=== PATIENT | female | born 1995 ===

== ENCOUNTER 2017-02-22 19:54 | Emergency (ER) | payer SELFPAY ==
[2017-02-22 19:59] VITALS: BMI 21.7
[2017-02-22 20:03] VITALS: TEMP 99.6
--- NOTE | 2017-02-22 20:42 | ED PDOC ---
Arrival/HPI - General Historian: Patient - History of Present Illness Time/Duration: < week Symptom Onset: Gradual Symptom Course: Unchanged Quality: Other (sharp) Severity Level: 10 Activities at Onset: Rest Context: Work <Luis Melo - Last Filed: 02/22/17 23:31> <EmilywildDileep - Last Filed: 02/26/17 10:04> - General Chief Complaint: Back Pain Time Seen by Provider: 02/22/17 20:10 - History of Present Illness Narrative History of Present Illness (Text): 02/22/17 20:37 This is a 21 yr. old female with no pertinent past medical history who comes to [facility] complaining of bilateral lower lumbar pain for two days. She describes the pain as sharp and nature and it radiates to the right lower quadrant and left lower quadrant. She reports taking a Tylenol and an unknown antibiotic from a previous prescription but denies any improvement in her symptoms. She also reports a change in her urine to a light pink around the same time the lower back pain began. She does report some nausea. She denies any fevers, chills, discharge from the vagina, new vaginal odors, weakness, chest pain, shortness of breath or any other complaints. (Luis Melo) Past Medical History - Provider Review Nursing Documentation Reviewed: Yes - Infectious Disease Hx of Infectious Diseases: None - Cardiac Hx Cardiac Disorders: No - Pulmonary Hx Respiratory Disorders: No - Neurological Hx Neurological Disorder: No - HEENT Hx HEENT Disorder: No - Renal Hx Renal Disorder: No - Endocrine/Metabolic Hx Endocrine Disorders: No - Hematological/Oncological Hx Blood Disorders: No - Integumentary Hx Dermatological Disorder: No - Musculoskeletal/Rheumatological Hx Musculoskeletal Disorders: No - Gastrointestinal Hx Gastrointestinal Disorders: No - Genitourinary/Gynecological Hx Genitourinary Disorders: No - Psychiatric Hx Psychophysiologic Disorder: No Hx Substance Use: No - Anesthesia Hx Anesthesia: No Hx Anesthesia Reactions: No <Luis Melo - Last Filed: 02/22/17 23:31> Family/Social History - Physician Review Nursing Documentation Reviewed: Yes Family/Social History: No Known Family HX Smoking Status: Never Smoked Hx Alcohol Use: No Hx Substance Use: No <Luis Melo - Last Filed: 02/22/17 23:31> Allergies/Home Meds <Luis Melo - Last Filed: 02/22/17 23:31> <Dileep Lafleur - Last Filed: 02/26/17 10:04> Allergies/Adverse Reactions: Allergies No Known Allergies Allergy (Verified 06/26/16 14:30) Review of Systems - Physician Review All systems were reviewed & negative as marked: Yes - Review of Systems Constitutional: Normal. absent: Weight Change, Fevers, Night Sweats Eyes: Normal. absent: Vision Changes, Eye Pain ENT: Normal. absent: Rhinorrhea, Sinus Congestion Respiratory: Normal. absent: SOB, Cough, Wheezing Cardiovascular: Normal. absent: Chest Pain, Palpitations Gastrointestinal: Abdominal Pain (radiation of pain to rlq and llq.), Nausea. absent: Stool Changes, Constipation, Diarrhea, Vomiting, Hematochezia Genitourinary Female: Other (urine color change to light pink). absent: Dysuria , Frequency, Vaginal Bleeding, Vaginal Discharge Musculoskeletal: Back Pain (bilaeral lower lumbar pain) Skin: Rash Neurological: Normal. absent: Dizziness, Speech Changes Endocrine: absent: Polyuria, Polydipsia Hemo/Lymphatic: Normal. absent: Easy Bleeding, Easy Bruising Psychiatric: Normal <Luis Melo - Last Filed: 02/22/17 23:31> Physical Exam Vital Signs Reviewed: Yes Temperature: Afebrile Blood Pressure: Normal Pulse: Regular Respiratory Rate: Normal Appearance: Positive for: Well-Appearing, Non-Toxic, Comfortable Pain Distress: Moderate Mental Status: Positive for: Alert and Oriented X 3 - Systems Exam Head: Present: Atraumatic, Normocephalic Pupils: Present: PERRL. No: Sluggish Extroacular Muscles: Present: EOMI. No: Gaze Palsy Conjunctiva: Present: Normal. No: Injected, Icteric Mouth: Present: Moist Mucous Membranes, Normal Tounge. No: Drooling Neck: Present: Normal Range of Motion. No: JVD, Lymphadenopathy Respiratory/Chest: Present: Clear to Auscultation, Good Air Exchange. No: Respiratory Distress, Accessory Muscle Use, Wheezes Cardiovascular: Present: Regular Rate and Rhythm, Normal S1, S2. No: Murmurs, Tachycardic, Bradycardic Abdomen: Present: Tenderness (llq and rlq some tenderness appreciated upon palpation), Normal Bowel Sounds. No: Distention, Rebound, Guarding Back: Present: Normal Inspection, CVA Tenderness (cva tenderness appreciated bilateral lower lumbar region). No: Paraspinal Tenderness Upper Extremity: Present: Normal Inspection. No: Cyanosis, Edema Lower Extremity: Present: Normal Inspection. No: Edema Neurological: Present: CN II-XII Intact, Speech Normal Skin: Present: Dry, Normal Color. No: Warm, Rashes Psychiatric: Present: Alert, Oriented x 3, Normal Insight, Normal Concentration <Luis Melo - Last Filed: 02/22/17 23:31> Medical Decision Making <Luis Melo - Last Filed: 02/22/17 23:31> <Dileep Lafleur - Last Filed: 02/26/17 10:04> ED Course and Treatment: 02/22/17 20:49 Patient is a 21 yr. old female who comes into [facility] complaining of bilateral lower lumbar pain that radiates to the rlq and llq. I ordered: cbc w/diff, cmp, u/a, poc, and abdominal ct scan. The patient was given Toradol for pain. The patient will be re-evaluated once the lab results return. 02/22/17 23:31 Patient U/A showed: proteinuria, urine blood (moderate), Leuk esterase (large), urine RBC(5-10), urine WBC and moderate urine bacteria. Patient was given 1 gram Rocephin IVPB. Patient will be discharged on Keflex 500mg BID for 5 days. Discussed with patient to establish PMD and f/u within one week. (Luis Meol) Impression: Pt was seen and evaluated with medical laboratory scientist. Pt, with no significant past medical history, complaining of sharp lower back pain radiating to her abdomen with associated nausea. Aware and agree with HPI, clinical findings, plan, and management. Plan: -- CT Abdomen and Pelvis w/o contrast -- Labs -- UA, urine cultures -- Toradol -- Rocephin -- Reassess and disposition (Dileep Lafleur) - Lab Interpretations Microbiology Results: Microbiology Results 02/22/17 20:49 Urine,Clean Catch Urine Culture - Final No Growth (<1,000 CFU/ML) Lab Results: 02/22/17 20:49 02/22/17 20:49 Lab Results 02/22/17 20:49: Sodium 140, Potassium 4.1, Chloride 103, Carbon Dioxide 25, Anion Gap 16, BUN 10, Creatinine 0.7, Est GFR ( Amer) > 60, Est GFR (Non- Af Amer) > 60, Random Glucose 89, Calcium 9.3, Total Bilirubin 0.2, AST 24, ALT 28, Alkaline Phosphatase 58, Total Protein 7.7, Albumin 4.3, Globulin 3.4, Albumin/Globulin Ratio 1.3 02/22/17 20:49: WBC 12.0 H, RBC 4.11, Hgb 12.1, Hct 36.9, MCV 89.8, MCH 29.4, MCHC 32.8, RDW 13.3, Plt Count 252, MPV 11.1 H, Gran % 66.8, Lymph % (Auto) 24.7 , [place] % (Auto) 7.2 H, Eos % (Auto) 1.0 L, Baso % (Auto) 0.3, Gran # 7.99 H, Lymph # 3.0, [place] # 0.9 H, Eos # 0.1, Baso # 0.03 02/22/17 20:49: Urine Color Yellow, Urine Appearance Turbid, Urine pH 7.0, Ur Specific [place] 1.015, Urine Protein 30 H, Urine Glucose (UA) Negative, Urine Ketones Negative, Urine Blood Moderate H, Urine Nitrate Negative, Urine Bilirubin Negative, Urine Urobilinogen 0.2, Ur Leukocyte Esterase Large H, Urine RBC 5 - 10, Urine WBC Tntc, Ur Epithelial Cells 6 - 8, Urine Bacteria Mod - RAD Interpretation Radiology Orders: 02/22/17 20:33 ABD & PELVIS W/O PO OR IV CONT [CT] Stat - Medication Orders Current Medication Orders: Discontinued Medications Ceftriaxone Sodium (Rocephin 1 Gram Ivpb) 1 gm in 100 mls @ 200 mls/hr IVPB STAT STA PRN Reason: Protocol Stop: 02/22/17 23:00 Last Admin: 02/22/17 22:46 Dose: 200 mls/hr Ketorolac Tromethamine (Toradol) 60 mg IM STAT STA Stop: 02/22/17 20:31 Last Admin: 02/22/17 20:58 Dose: 60 mg - PA / QUALITY TECHNICIAN / Resident Statement / has reviewed & agrees with the documentation as recorded. MD/DO has examined the patient and agrees with the treatment plan. <Dileep Lafleur - Last Filed: 02/26/17 10:04> Disposition/Present on Arrival - Present on Arrival Any Indicators Present on Arrival: No History of DVT/PE: No History of Uncontrolled Diabetes: No Urinary Catheter: No History of Decub. Ulcer: No History Surgical Site Infection Following: None - Disposition Have Diagnosis and Disposition been Completed?: Yes Disposition Time: 22:42 Patient Plan: Discharge <Luis Melo - Last Filed: 02/22/17 23:31> - Present on Arrival Any Indicators Present on Arrival: No - Disposition Have Diagnosis and Disposition been Completed?: Yes <Dileep Lafleur - Last Filed: 02/26/17 10:04> - Disposition Diagnosis: UTI (urinary tract infection) Disposition: HOME/ ROUTINE Condition: GOOD Discharge Instructions (ExitCare): Dysuria (ED) Additional Instructions: Patient instructed to take Keflex 500 mg BID for 5 days. Patient instructed to F/U with PMD within one week. Patient is to return to [facility] if any new symptoms arise or any current symptoms worsen. Prescriptions: Cephalexin [cephalexin] 500 mg PO BID #10 cap Referrals: PCP,NO [Primary Care Provider] - Follow up with primary Forms: [employer] (Romansh)
[2017-02-22 21:00] LABS: BASO # 0.03 K/mm3 (0.0-2.0); BASO % 0.3 % (0.0-3.0); EOS # 0.1 (0.0-0.7); GRAN # 7.99 (1.4-6.5); GRAN % 66.8 % (50.0-68.0); HEMATOCRIT 36.9 % (36.0-48.0); LYMPH % 24.7 % (22.0-35.0); MEAN CELL VOLUME 89.8 fl (80.0-105.0); MEAN CORPUSCULAR HEMOGLOBIN 29.4 pg (25.0-35.0); MEAN CORPUSCULAR HGB CONC 32.8 g/dl (31.0-37.0); MEAN PLATELET VOLUME 11.1 fl (7.0-11.0); MONO # 0.9 (0.1-0.6); MONO % 7.2 % (1.0-6.0); RED CELL DISTRIBUTION WIDTH 13.3 % (11.5-14.5); URINE BILIRUBIN NEGATIVE (NEGATIVE); URINE GLUCOSE (UA) NEGATIVE (NEGATIVE); URINE KETONE NEGATIVE (NEGATIVE); URINE LEUKOCYTE ESTERASE LARGE Leu/uL (NEGATIVE); URINE PROTEIN 30 mg/dL (<30 mg/dL); URINE UROBILINOGEN 0.2 E.U./dL (<1 E.U./dL)
[2017-02-22 21:09] LABS: URINE APPEARANCE TURBID (CLEAR); URINE COLOR YELLOW (YELLOW)
[2017-02-22 21:10] LABS: ALB/GLOB RATIO 1.3 (1.1-1.8); ALKALINE PHOSPHATASE 58 U/L (38-133); ALT/SGPT 28 U/L (7-56); AST/SGOT 24 U/L (15-39); BILIRUBIN,TOTAL 0.2 mg/dL (0.2-1.3); BLOOD UREA NITROGEN 10 mg/dL (7-21); CALCIUM 9.3 mg/dL (8.4-10.5); CARBON DIOXIDE 25 mmol/L (21-33); CHLORIDE 103 mmol/L (98-107); GFR AFRICAN-AMERICAN > 60; GLUCOSE,RANDOM 89 mg/dL (70-110); POTASSIUM 4.1 mmol/L (3.6-5.0); SODIUM 140 mmol/L (132-148); TOTAL PROTEIN 7.7 g/dL (5.8-8.3)
[2017-02-22 21:11] LABS: URINE BLOOD MODERATE (NEGATIVE)
[2017-02-22 21:12] LABS: URINE WBC TNTC /hpf (0-6)
[2017-02-22 21:13] LABS: URINE BACTERIA MOD (NEG)
--- NOTE | 2017-02-22 22:18 | CT ---
EXAM: CT Abdomen and Pelvis Without Intravenous Contrast CLINICAL HISTORY: 21 years old, female; Pain; Abdominal pain; Additional info: Bilateral lumbar pain/rlq and llq pain TECHNIQUE: Axial computed tomography images of the abdomen and pelvis without intravenous contrast. All CT scans at this facility use one or more dose reduction techniques, viz.: automated exposure control; ma/kV adjustment per patient size (including targeted exams where dose is matched to indication; i.e. head); or iterative reconstruction technique. Coronal and sagittal reformatted images were created and reviewed. COMPARISON: US - OB TRANSVAGINAL 06/26/2016 3:16:20 PM FINDINGS: Lower thorax: There is minimal bibasilar atelectasis. ABDOMEN: Liver: There are no focal liver lesions present. Gallbladder and bile ducts: The gallbladder is contracted but otherwise normal. No calcified stones. No ductal dilation. Pancreas: The pancreas is normal. No ductal dilation. Spleen: The spleen is normal. Adrenals: The adrenal glands are normal. Kidneys and ureters: The kidneys are normal. No obstructing stones. No hydronephrosis. Stomach and bowel: The stomach is normal. Colonic constipation is present. There is no evidence of intestinal obstruction. No mucosal thickening. Appendix: A normal appendix is identified. PELVIS: Bladder: Bladder is predominantly decompressed and grossly unremarkable. No stones. Reproductive: The uterus is normal. ABDOMEN and PELVIS: Intraperitoneal space: There is trace pelvic ascites, nonspecific. There is no free intraperitoneal air. Bones/joints: No acute fracture. No dislocation. Soft tissues: Unremarkable. Vasculature: The aorta is normal. No abdominal aortic aneurysm. Lymph nodes: There is no evidence of lymphadenopathy. IMPRESSION: No acute findings.
[2017-02-22] MEDS ORDERED: cefTRIAXone 1 gm 1 GM/100 ML BAG IVPB STA (22:31)
[2017-02-22 23:49] VITALS: BP 105/70; PULSE 78; RESP 18; O2SAT 98
== END 2017-02-22 23:40 | disposition home or self-care (01) ==
LOC: ED 19:54
DX: N39.0 Urinary tract infection, site not specified (principal)
CPT/HCPCS: 74176; 80053; 81001; 85025; 87086; 96372; 99284; J0696; J1885

== ENCOUNTER 2017-03-17 20:22 | Emergency (ER) | payer SELFPAY ==
[2017-03-17 20:22] VITALS: BMI 21.7
[2017-03-17 20:29] VITALS: TEMP 98.9
[2017-03-17] MEDS ORDERED: TDAP Vaccine 0.5 mL Syr IM ONE (21:21)
[2017-03-17] MEDS ORDERED: Naproxen 550 mg Tab PO STA (21:23)
[2017-03-17] MEDS ORDERED: Lidocaine 1% Inj (20ml) IJ STA (22:19)
--- NOTE | 2017-03-17 23:05 | ED PDOC ---
Arrival/HPI - General Chief Complaint: Abnormal Skin Integrity Time Seen by Provider: 03/17/17 21:21 Historian: Patient - History of Present Illness Narrative History of Present Illness (Text): 03/18/17 00:12 21 yo F sustained a laceration to the left palm when she was using a knife to separate 2 veggie burgers. Denies fevers, chills, numbness, decrease in ROM. Has no other injuries. Past Medical History - Provider Review Nursing Documentation Reviewed: Yes - Infectious Disease Hx of Infectious Diseases: None - Tetanus Immunization Tetanus Immunization: Unknown - Cardiac Hx Cardiac Disorders: No - Pulmonary Hx Respiratory Disorders: No - Neurological Hx Neurological Disorder: No - HEENT Hx HEENT Disorder: No - Renal Hx Renal Disorder: No - Endocrine/Metabolic Hx Endocrine Disorders: No - Hematological/Oncological Hx Blood Disorders: No - Integumentary Hx Dermatological Disorder: No - Musculoskeletal/Rheumatological Hx Musculoskeletal Disorders: No - Gastrointestinal Hx Gastrointestinal Disorders: No - Genitourinary/Gynecological Hx Genitourinary Disorders: No - Psychiatric Hx Psychophysiologic Disorder: No Hx Substance Use: No - Anesthesia Hx Anesthesia: No Hx Anesthesia Reactions: No Family/Social History - Physician Review Nursing Documentation Reviewed: Yes Family/Social History: No Known Family HX Smoking Status: Never Smoked Hx Alcohol Use: Yes Frequency of alcohol use: Socially Hx Substance Use: No Allergies/Home Meds Allergies/Adverse Reactions: Allergies No Known Allergies Allergy (Verified 03/17/17 20:23) Review of Systems - Review of Systems Constitutional: Normal. absent: Fatigue, Weight Change, Fevers Musculoskeletal: Normal. absent: Arthralgias, Back Pain, Neck Pain Skin: Normal, Laceration. absent: Rash, Pruritis, Skin Lesions Physical Exam - Physical Exam Narrative Physical Exam (Text): 03/18/17 00:14 GENERAL APPEARANCE: Patient is awake, alert, oriented x 3, in no acute distress. SKIN: Warm, (-) rash, (-) lesions. UPPER EXTREMITY: (+) Tenderness with laceration to the hypothenar aspect of the L paln ~2 cm, (-) swelling, (-) ecchymosis; (-) crepitus, (-) deformity. Tendon function intact. (-) distal neurovascular deficit. 2 point discrimination. Remainder of hand, digits and wrist: (-) injury. Vital Signs Temp Pulse Resp BP Pulse Ox 03/17/17 20:23 98.9 F 76 16 114/78 100 Medical Decision Making ED Course and Treatment: 03/18/17 00:14 21 yo F sustained a laceration to the L palm. Plan: - XR L hand - Tdap - Naprosyn - Laceration repair XR L hand: no fracture, no dislocation, no FB, as read by PA The wound is L palm. The wound was copiously irrigated with normal saline. The wound was prepped and draped in the normal sterile fashion. The wound was explored for foreign bodies and none were found. The wound was anesthetised using lidocaine. The edges were reapproximated using 3 5-0 prolene sutures by PA. Bleeding was well controlled and the patient tolerated the procedure well. Clean dressing applied. Advised to follow up with the clinic in 1-2 days without fail for wound check, advised to have sutures removed after 1 week. Advised to take medication as prescribed. Return to the emergency room at any time for any new or worsening symptoms. Patient states she fully agrees with and understands discharge instructions. States that she agrees with the plan and disposition. Verbalized and repeated discharge instructions and plan. I have given the patient opportunity to ask any additional questions. - RAD Interpretation Radiology Orders: 03/17/17 21:22 HAND LEFT 3 VIEWS ROUTINE [RAD] Stat - Medication Orders Current Medication Orders: Discontinued Medications Lidocaine HCl (Lidocaine 1% (20ml)) 50 ml IJ STAT STA Stop: 03/17/17 22:20 Last Admin: 03/17/17 22:32 Dose: 10 ml Comments: Given by ResidentMazin. Naproxen (Anaprox Ds) 550 mg PO ONCE STA Stop: 03/17/17 21:24 Last Admin: 03/17/17 21:38 Dose: 550 mg Tetanus/Reduced Diphtheria/Acell Pertussis (Boostrix Vaccine Inj) 0.5 ml IM .ONCE ONE Stop: 03/17/17 21:22 Last Admin: 03/17/17 21:37 Dose: 0.5 ml - PA / MANUFACTURER / Resident Statement / has reviewed & agrees with the documentation as recorded. Disposition/Present on Arrival - Present on Arrival Any Indicators Present on Arrival: No History of DVT/PE: No History of Uncontrolled Diabetes: No Urinary Catheter: No History of Decub. Ulcer: No History Surgical Site Infection Following: None - Disposition Have Diagnosis and Disposition been Completed?: Yes Diagnosis: Laceration of hand, left Disposition: HOME/ ROUTINE Disposition Time: 23:03 Patient Plan: Discharge Patient Problems: Current Active Problems Problem Status Onset Laceration of hand, left Acute Condition: STABLE Discharge Instructions (ExitCare): Laceration (ED), Acute Wound Care (ED) Print Language: SLOVAK Additional Instructions: Thank you for letting us take care of you today. You were treated for L hand laceration. The emergency medical care you received today was directed at your acute symptoms. If you were prescribed any medication, please fill it and take as directed. It may take several days for your symptoms to resolve. Return to the Emergency Department if your symptoms worsen, do not improve, or if you have any other problems. Please contact your doctor in 2 days for re-evaluation and follow up. Bring any paperwork you were given at discharge with you along with any medications you are taking to your follow up visit. Our treatment cannot replace ongoing medical care by a primary care provider (PCP) outside of the emergency department. Thank you for allowing the [facility] team to be part of your care today. If you had an X-Ray : A Radiologist will review the ED reading if any change in treatment is needed we will contact you. Prescriptions: Naproxen 500 mg PO BID #30 tab Referrals: PCP,NO [Primary Care Provider] - [place] [facility] [place] - Follow up with primary Forms: [email or web address] (Malagasy), WORK NOTE, SCHOOL NOTE
[2017-03-18 00:15] VITALS: BP 120/68; PULSE 84; RESP 18; O2SAT 98
--- NOTE | 2017-03-18 08:45 | RAD ---
PROCEDURE: Left Hand Radiographs. HISTORY: trauma COMPARISON: None. FINDINGS: BONES: Normal. No fracture. JOINTS: Normal. No osteoarthritic changes. SOFT TISSUES: Normal. OTHER FINDINGS: None. IMPRESSION: Normal left hand radiographs.
== END 2017-03-18 00:20 | disposition home or self-care (01) ==
LOC: ED 20:22
DX: S61.412A Laceration without foreign body of left hand, initial encounter (principal); W26.0XXA Contact with knife, initial encounter; Y93.G9 Activity, other involving cooking and grilling; Y92.89 Other specified places as the place of occurrence of the external cause; Z23 Encounter for immunization

== ENCOUNTER 2017-05-04 19:40 | Emergency (ER) | payer SELFPAY ==
[2017-05-04 20:01] VITALS: BMI 21.0
[2017-05-04 20:05] VITALS: BP 104/71; PULSE 77; RESP 17; TEMP 98.6; O2SAT 99
[2017-05-04] MEDS ORDERED: Sodium Chloride 0.9% 1,000 ML IV STA (20:25)
--- NOTE | 2017-05-04 20:50 | ED PDOC ---
Arrival/HPI - General Historian: Patient - History of Present Illness Time/Duration: 24 hours Symptom Onset: Sudden Symptom Course: Intermittent Quality: Stabbing Severity Level: Moderate Context: Home - General Chief Complaint: Abdominal Pain Time Seen by Provider: 05/04/17 19:47 - History of Present Illness Narrative History of Present Illness (Text): 05/04/17 20:46 22F w/no sig PMH evaluated for epigastric abdominal pain x 1 day. Pt reports sudden onset of epigastric pain, intermittent since AM of day of evaluation. Pain is sharp, moderate, non radiating. No alleviating factors identified. Admits to heavy ETOH consumption last night, was not able to eat anything this AM. Admits to nausea, emesis x 1 (nbnb), dry mouth, poor appetite. Denies F & C , other complaints. PMH: Denies PSH: Denies All: NKDA SH: Admits to occasional heavy ETOH consumption, denies tobacco or illicit drug use PMD: Denies (Pamela Melara) Past Medical History - Provider Review Nursing Documentation Reviewed: Yes - Infectious Disease Hx of Infectious Diseases: None - Tetanus Immunization Tetanus Immunization: Unknown - Cardiac Hx Cardiac Disorders: No - Pulmonary Hx Respiratory Disorders: No - Neurological Hx Neurological Disorder: No - HEENT Hx HEENT Disorder: No - Renal Hx Renal Disorder: No - Endocrine/Metabolic Hx Endocrine Disorders: No - Hematological/Oncological Hx Blood Disorders: No - Integumentary Hx Dermatological Disorder: No - Musculoskeletal/Rheumatological Hx Musculoskeletal Disorders: No - Gastrointestinal Hx Gastrointestinal Disorders: No - Genitourinary/Gynecological Hx Genitourinary Disorders: No - Psychiatric Hx Psychophysiologic Disorder: No Hx Substance Use: No - Anesthesia Hx Anesthesia: No Hx Anesthesia Reactions: No Family/Social History - Physician Review Nursing Documentation Reviewed: Yes Family/Social History: No Known Family HX Smoking Status: Never Smoked Hx Alcohol Use: Yes Frequency of alcohol use: Socially Hx Substance Use: No Allergies/Home Meds Allergies/Adverse Reactions: Allergies No Known Allergies Allergy (Verified 05/04/17 20:00) Home Medications: Home Meds Medication Instructions Recorded Confirmed No Known Home Med 05/04/17 05/04/17 Review of Systems - Physician Review All systems were reviewed & negative as marked: Yes - Review of Systems Constitutional: Normal. absent: Fatigue Eyes: Normal. absent: Vision Changes ENT: Normal. absent: Rhinorrhea Respiratory: Normal. absent: SOB Cardiovascular: Normal. absent: Chest Pain Gastrointestinal: Abdominal Pain, Nausea, Vomiting, Appetite Changes, Food Intolerance. absent: Normal, Constipation, Diarrhea, Hematochezia, Hematemesis Musculoskeletal: Normal. absent: Back Pain Skin: Normal. absent: Rash Neurological: Normal. absent: Headache Physical Exam Vital Signs Reviewed: Yes Temperature: Afebrile Blood Pressure: Normal Pulse: Regular Respiratory Rate: Normal Appearance: Positive for: Non-Toxic, Comfortable Pain Distress: None Mental Status: Positive for: Alert and Oriented X 3 - Systems Exam Head: Present: Atraumatic, Normocephalic Extroacular Muscles: Present: EOMI Conjunctiva: Present: Normal Mouth: Present: Moist Mucous Membranes Nose (External): Present: Atraumatic Neck: Present: Normal Range of Motion, JVD Respiratory/Chest: Present: Clear to Auscultation, Good Air Exchange. No: Respiratory Distress, Accessory Muscle Use Cardiovascular: Present: Regular Rate and Rhythm, Normal S1, S2. No: Murmurs Abdomen: Present: Tenderness (mild, epigastric), Normal Bowel Sounds, Scars ( umbilical piercing). No: Distention, Peritoneal Signs, Rebound, Guarding, Hernias Back: Present: Normal Inspection Upper Extremity: Present: Normal Inspection. No: Cyanosis, Edema Lower Extremity: Present: Normal Inspection. No: Edema Neurological: Present: GCS=15, CN II-XII Intact, Speech Normal Skin: Present: Warm, Dry, Normal Color. No: Rashes Psychiatric: Present: Alert, Oriented x 3, Normal Insight, Normal Concentration Vital Signs Temp Pulse Resp BP Pulse Ox 05/04/17 20:04 98.6 F 77 17 104/71 99 Medical Decision Making ED Course and Treatment: 05/04/17 20:52 Pt seen/evaluated, will give anti-emetic, pepcid, IVF and do labs to r/o pancreatitis 05/04/17 21:11 Pt re-assessed, states that pain is much improved. (Pamela Melara) In agreement with resident note, which includes further HPI details. Patient was seen and evaluated with resident, came up with plan and treatment together. (Dileep Lafleur) - Lab Interpretations Lab Results: 05/04/17 20:29 05/04/17 20:29 Lab Results 05/04/17 20:29: Sodium 141, Potassium 4.0, Chloride 101, Carbon Dioxide 28, Anion Gap 16, BUN 6 L, Creatinine 0.7, Est GFR ( Amer) > 60, Est GFR (Non -Af Amer) > 60, Random Glucose 74, Calcium 9.7, Total Bilirubin 0.5, AST 31, ALT 22, Alkaline Phosphatase 44, Total Protein 8.1, Albumin 4.6, Globulin 3.5, Albumin/Globulin Ratio 1.3, Lipase 72 05/04/17 20:29: WBC 8.4 D, RBC 4.22, Hgb 12.3, Hct 37.7, MCV 89.3, MCH 29.1, MCHC 32.6, RDW 13.3, Plt Count 339, MPV 10.7, Gran % 47.7 L, Lymph % (Auto) 43.1 H, [place] % (Auto) 8.1 H, Eos % (Auto) 0.4 L, Baso % (Auto) 0.7, Gran # 3.99 , Lymph # 3.6 H, [place] # 0.7 H, Eos # 0.0, Baso # 0.06 - Medication Orders Current Medication Orders: Discontinued Medications Famotidine (Pepcid) 20 mg IVP STAT STA Stop: 05/04/17 20:27 Last Admin: 05/04/17 20:57 Dose: 20 mg IVP Administration Document 05/04/17 20:57 SS (Rec: 05/04/17 20:57 [id number]) Charges for Administration # of IVP Administrations 1 Sodium Chloride (Sodium Chloride 0.9%) 1,000 mls @ 999 mls/hr IV .Q1H1M STA Stop: 05/04/17 21:25 Last Admin: 05/04/17 20:57 Dose: 999 mls/hr eMAR Start Stop Document 05/04/17 20:57 SS (Rec: 05/04/17 20:58 SS [id number]) Intravenous Solution Start Date 05/04/17 Start Time 20:40 End Date 05/04/17 End time 21:40 Total Infusion Time 60 Ondansetron HCl (Zofran Inj) 4 mg IVP STAT STA Stop: 05/04/17 20:26 Last Admin: 05/04/17 20:57 Dose: 4 mg IVP Administration Document 05/04/17 20:57 SS (Rec: 05/04/17 20:57 SS [id number]) Charges for Administration # of IVP Administrations 1 Disposition/Present on Arrival - Present on Arrival Any Indicators Present on Arrival: No History of DVT/PE: No History of Uncontrolled Diabetes: No Urinary Catheter: No History of Decub. Ulcer: No History Surgical Site Infection Following: None - Disposition Have Diagnosis and Disposition been Completed?: Yes Disposition Time: 21:32 Patient Plan: Discharge - Disposition Diagnosis: Gastritis due to alcohol without hemorrhage Disposition: HOME/ ROUTINE Condition: STABLE Discharge Instructions (ExitCare): Gastritis (ED) Additional Instructions: Ok to take pepcid over the counter as needed for stomach upset after alcohol consumption. Please follow up with a primary care provider to establish care. Referrals: [facility] at [facility] [place] [Outside] - Follow up with primary [facility] [facility] [Outside] - Follow up with primary Forms: [facility] (Armenian), WORK NOTE
[2017-05-04 21:06] LABS: BASO # 0.06 K/mm3 (0.0-2.0); BASO % 0.7 % (0.0-3.0); EOS % 0.4 % (1.5-5.0); GRAN # 3.99 (1.4-6.5); GRAN % 47.7 % (50.0-68.0); HEMATOCRIT 37.7 % (36.0-48.0); LYMPH # 3.6 (1.2-3.4); LYMPH % 43.1 % (22.0-35.0); MEAN CELL VOLUME 89.3 fl (80.0-105.0); MEAN CORPUSCULAR HEMOGLOBIN 29.1 pg (25.0-35.0); MEAN CORPUSCULAR HGB CONC 32.6 g/dl (31.0-37.0); MEAN PLATELET VOLUME 10.7 fl (7.0-11.0); MONO # 0.7 (0.1-0.6); MONO % 8.1 % (1.0-6.0); RED CELL DISTRIBUTION WIDTH 13.3 % (11.5-14.5); WHITE BLOOD COUNT 8.4 10^3/ul (4.5-11.0)
[2017-05-04 21:11] LABS: ALB/GLOB RATIO 1.3 (1.1-1.8); ALKALINE PHOSPHATASE 44 U/L (38-126); ALT/SGPT 22 U/L (7-56); AST/SGOT 31 U/L (14-36); BILIRUBIN,TOTAL 0.5 mg/dL (0.2-1.3); BLOOD UREA NITROGEN 6 mg/dL (7-21); CALCIUM 9.7 mg/dL (8.4-10.5); CARBON DIOXIDE 28 mmol/L (21-33); CHLORIDE 101 mmol/L (98-107); GFR AFRICAN-AMERICAN > 60; GLUCOSE,RANDOM 74 mg/dL (70-110); LIPASE 72 U/L (23-300); SODIUM 141 mmol/L (132-148); TOTAL PROTEIN 8.1 g/dL (5.8-8.3)
== END 2017-05-04 21:40 | disposition home or self-care (01) ==
LOC: ED 19:40
DX: K29.20 Alcoholic gastritis without bleeding (principal)
CPT/HCPCS: 80053; 83690; 85025; 96361; 96374; 96375; 99283; J2405; J7040

== ENCOUNTER 2017-10-26 22:00 | Emergency (ER) | payer SELFPAY ==
[2017-10-26 22:49] VITALS: RESP 17; BMI 21.9
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
[2017-10-27 02:16] VITALS: BP 118/68; PULSE 70; TEMP 98.2; O2SAT 100
--- NOTE | 2017-10-27 10:12 | RAD ---
PROCEDURE: Left Knee Radiographs. HISTORY: Pain. COMPARISON: None. FINDINGS: BONES: Normal. No fracture. JOINTS: Normal. No osteoarthritis. JOINT EFFUSION: None. OTHER FINDINGS: None. IMPRESSION: Normal radiographs of the left knee.
== END 2017-10-27 02:30 | disposition home or self-care (01) ==
LOC: ED 22:00
DX: S80.212A Abrasion, left knee, initial encounter (principal); S80.211A Abrasion, right knee, initial encounter; S90.512A Abrasion, left ankle, initial encounter; S30.810A Abrasion of lower back and pelvis, initial encounter; V28.9XXA Unspecified motorcycle rider injured in noncollision transport accident in traffic accident, initial encounter; Y92.89 Other specified places as the place of occurrence of the external cause; M25.562 Pain in left knee
CPT/HCPCS: 73562; 96372; 99285; J1885

== ENCOUNTER 2017-10-30 00:51 | Emergency (ER) | payer SELFPAY ==
[2017-10-30 00:51] VITALS: BMI 21.0
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
[2017-10-30 02:33] VITALS: RESP 18
--- NOTE | 2017-10-30 03:45 | CT ---
EXAM: CT Maxillofacial Without Intravenous Contrast EXAM DATE/TIME: 10/30/2017 2:01 AM CLINICAL HISTORY: The patient age is 22 years old and is female; Pain; Jaw pain; Additional info: Left jaw pain Facility exam id and description: Ct faces maxillofacial w/o contrast TECHNIQUE: Axial computed tomography images of the face without intravenous contrast. All CT scans at this facility use one or more dose reduction techniques, viz.: automated exposure control; ma/kV adjustment per patient size (including targeted exams where dose is matched to indication; i.e. head); or iterative reconstruction technique. Coronal and sagittal reformatted images were created and reviewed. COMPARISON: No relevant prior studies available. FINDINGS: Bones/joints: No visualized acute facial bone fracture. Soft tissues: No acute facial soft tissue swelling. Orbits: No acute abnormality. Sinuses: There is minimal mucosal thickening within the bilateral maxillary sinuses. The frontal sinuses are hypoplastic. No air fluid levels within the paranasal sinuses. Dental: Dental caries is visualized. IMPRESSION: 1. No visualized acute facial bone fracture. 2. Minimal paranasal sinus disease is noted above.
[2017-10-30 04:57] VITALS: BP 100/52; PULSE 72; TEMP 98.6; O2SAT 100
== END 2017-10-30 04:15 | disposition home or self-care (01) ==
LOC: ED 00:51
DX: R68.84 Jaw pain (principal); Z51.89 Encounter for other specified aftercare
CPT/HCPCS: 70486; 81025; 96372; 99284; J1885

== ENCOUNTER 2018-05-31 18:38 | Emergency (ER) | payer MEDICAID, OTHER ==
[2018-05-31 18:39] VITALS: BMI 21.0
[2018-05-31 19:16] VITALS: TEMP 99.3
[2018-05-31] MEDS ORDERED: Sodium Chloride 0.9% 1,000 ML IV STA (19:46)
[2018-05-31 20:09] LABS: BASO # 0.02 K/mm3 (0.0-2.0); BASO % 0.2 % (0.0-3.0); EOS # 0.1 (0.0-0.7); GRAN # 5.2 (1.4-6.5); GRAN % 55.9 % (50.0-68.0); HEMOGLOBIN 11.5 g/dL (12.0-16.0); LYMPH # 3.6 (1.2-3.4); LYMPH % 38.2 % (22.0-35.0); MEAN CELL VOLUME 88.4 fl (80.0-105.0); MEAN CORPUSCULAR HEMOGLOBIN 28.3 pg (25.0-35.0); MEAN PLATELET VOLUME 10.7 fl (7.0-11.0); MONO # 0.4 (0.1-0.6); MONO % 4.7 % (1.0-6.0); RBC 4.06 10^6/uL (3.5-6.1); RED CELL DISTRIBUTION WIDTH 13.6 % (11.5-14.5); WHITE BLOOD COUNT 9.3 10^3/uL (4.5-11.0)
[2018-05-31 20:10] LABS: URINE APPEARANCE CLEAR (CLEAR); URINE BILIRUBIN NEGATIVE (NEGATIVE); URINE BLOOD NEGATIVE (NEGATIVE); URINE COLOR LIGHT YELLOW (YELLOW); URINE GLUCOSE (UA) NEGATIVE (NEGATIVE); URINE LEUKOCYTE ESTERASE NEGATIVE Leu/uL (NEGATIVE); URINE PROTEIN NEGATIVE mg/dL (<30 mg/dL); URINE UROBILINOGEN 0.2 E.U./dL (<1 E.U./dL)
[2018-05-31 20:23] LABS: ALB/GLOB RATIO 1.2 (1.1-1.8); ALBUMIN 4.4 g/dL (3.0-4.8); ALT/SGPT 24 U/L (7-56); AST/SGOT 30 U/L (14-36); BLOOD UREA NITROGEN 11 mg/dL (7-21); CALCIUM 9.5 mg/dL (8.4-10.5); GFR NON-AFRICAN AMERICAN > 60; LIPASE 89 U/L (23-300)
[2018-05-31 22:07] VITALS: BP 105/79; PULSE 85; RESP 18; O2SAT 100
--- NOTE | 2018-05-31 22:36 | ED PDOC ---
Arrival/HPI - General Chief Complaint: Headache Historian: Patient - History of Present Illness Narrative History of Present Illness (Text): 05/31/18 19:40 23 year old female, P:0, with no significant past medical history, who presents to the emergency department complaining of lower abdominal pain over the past 1-2 weeks. Patient notes mild nausea and states she vomited twice yesterday. Patient states her last known menstrual period was April 29, but notes it was very light. Patient denies any dysuria, hematuria, or any other complaints. Time/Duration: < week (Patient notes abdominal pain for past 1-2 weeks) Symptom Onset: Sudden Symptom Course: Unchanged Activities at Onset: Light Past Medical History - Provider Review Nursing Documentation Reviewed: Yes - Infectious Disease Hx of Infectious Diseases: None - Tetanus Immunization Tetanus Immunization: Up to Date - Cardiac Hx Cardiac Disorders: No - Pulmonary Hx Respiratory Disorders: No - Neurological Hx Neurological Disorder: No - HEENT Hx HEENT Disorder: No - Renal Hx Renal Disorder: No - Endocrine/Metabolic Hx Endocrine Disorders: No - Hematological/Oncological Hx Blood Disorders: No - Integumentary Hx Dermatological Disorder: No - Musculoskeletal/Rheumatological Hx Musculoskeletal Disorders: No - Gastrointestinal Hx Gastrointestinal Disorders: No - Genitourinary/Gynecological Hx Genitourinary Disorders: Yes Hx Urinary Tract Infection: Yes - Psychiatric Hx Psychophysiologic Disorder: No Hx Substance Use: No - Anesthesia Hx Anesthesia: No Hx Anesthesia Reactions: No Family/Social History - Physician Review Nursing Documentation Reviewed: Yes Family/Social History: No Known Family HX Smoking Status: Never Smoked Hx Alcohol Use: Yes Hx Substance Use: No Allergies/Home Meds Allergies/Adverse Reactions: Allergies No Known Allergies Allergy (Verified 05/31/18 19:21) Review of Systems - Physician Review All systems were reviewed & negative as marked: Yes - Review of Systems Gastrointestinal: Abdominal Pain (patient notes lower abd pain for past 1-2 weeks), Nausea (pt notes mild nausea), Vomiting (pt notes she vomited twice yesterday). absent: Normal Genitourinary Female: Normal. absent: Dysuria, Hematuria Physical Exam Vital Signs Reviewed: Yes Vital Signs Temp Pulse Resp BP Pulse Ox 05/31/18 21:30 85 18 105/79 100 05/31/18 19:14 99.3 F 86 17 100/35 L 98 Temperature: Afebrile Blood Pressure: Normal Pulse: Regular Respiratory Rate: Normal Appearance: Positive for: Well-Appearing, Non-Toxic, Comfortable Pain Distress: Mild Mental Status: Positive for: Alert and Oriented X 3 - Systems Exam Head: Present: Atraumatic, Normocephalic Pupils: Present: PERRL Extroacular Muscles: Present: EOMI Conjunctiva: Present: Normal Mouth: Present: Moist Mucous Membranes Neck: Present: Normal Range of Motion Respiratory/Chest: Present: Clear to Auscultation, Good Air Exchange. No: Respiratory Distress, Accessory Muscle Use Cardiovascular: Present: Regular Rate and Rhythm, Normal S1, S2. No: Murmurs Abdomen: No: Tenderness, Distention, Peritoneal Signs Back: Present: Normal Inspection Upper Extremity: Present: Normal Inspection. No: Cyanosis, Edema Lower Extremity: Present: Normal Inspection. No: Edema Neurological: Present: GCS=15, CN II-XII Intact, Speech Normal Skin: Present: Warm, Dry, Normal Color. No: Rashes Psychiatric: Present: Alert, Oriented x 3, Normal Insight, Normal Concentration Medical Decision Making ED Course and Treatment: 05/31/18 19:40 Impression: 23 year old female, P:0, complaining of lower abdominal pain over the past 1-2 weeks. Plan: -- Labs -- CBC (with differential) -- IV fluids -- Urine culture -- ED NPO (ED Only Order) -- POC Urine -- Urinalysis -- US of OB transvaginal -- Transvaginal US -- Reassess and disposition Prior Visits: Notes and results from previous visits were reviewed. Patient was last seen in the emergency department on 10/30/17 c/o left jaw pain x 4 days. Patient was discharged home in good condition and directed to follow up with Dr. Stubbs. Progress Notes: 05/31/18 I reviewed the bloodwork and Ultrasound, indicating + . Pt given prescription for vitamins and will follow up with OBGYN doctor this week. - Lab Interpretations Lab Results: 05/31/18 19:56 05/31/18 19:56 Lab Results 05/31/18 19:56: Beta HCG, Quant [id number] H 05/31/18 19:56: Sodium 139, Potassium 4.5, Chloride 103, Carbon Dioxide 27, Anion Gap 13, BUN 11, Creatinine 0.7, Est GFR ( Amer) > 60, Est GFR (Non-Af Amer) > 60, Random Glucose 90, Calcium 9.5, Magnesium 2.0, Total Bilirubin 0.2, AST 30, ALT 24, Alkaline Phosphatase 56, Total Protein 8.2, Albumin 4.4, Globulin 3.8, Albumin/Globulin Ratio 1.2, Lipase 89 05/31/18 19:56: Urine Color Light yellow, Urine Appearance Clear, Urine pH 7.0, Ur Specific [place] 1.020, Urine Protein Negative, Urine Glucose (UA) Negative, Urine Ketones Negative, Urine Blood Negative, Urine Nitrate Negative, Urine Bilirubin Negative, Urine Urobilinogen 0.2, Ur Leukocyte Esterase Negative 05/31/18 19:56: WBC 9.3, RBC 4.06, Hgb 11.5 L, Hct 35.9 L, MCV 88.4, MCH 28.3, MCHC 32.0, RDW 13.6, Plt Count 301, MPV 10.7, Gran % 55.9, Lymph % (Auto) 38.2 H , [place] % (Auto) 4.7, Eos % (Auto) 1.0 L, Baso % (Auto) 0.2, Gran # 5.20, Lymph # (Auto) 3.6 H, [place] # (Auto) 0.4, Eos # (Auto) 0.1, Baso # (Auto) 0.02 - RAD Interpretation Narrative RAD Interpretations (Text): Transvaginal US reviewed by radiologist, shows: Exam Date: May 31, 2018 8:20:49 PM History Lower abdominal pain. Comparison None available. Findings Uterus Gestational sac is seen. Yolk sac measures 0.2 cm. pole and heart motion are not identified. Uterus measures 8.9 x 5.5 x 6.1 cm. No mass. Cervix Long and closed measuring 3.2 cm. No cervical abnormality seen. Right Ovary Measures 3.3 x 1.3 x 2.7 cm. No mass. Normal flow. Left Ovary Measures 3.1 x 1.5 x 3.3 cm. No mass. Normal flow. Free Fluid None. Other Findings None. Impression 1. Early IUP with gestational sac and yolk sac datead at less than 4 week. 2. pole and heart motion are not identified. 3. Consider follow up in 1-2 weeks. Radiology Orders: 05/31/18 19:46 OB TRANSVAGINAL [US] Stat Presales Engineer: Radiologist - Medication Orders Current Medication Orders: Discontinued Medications Sodium Chloride (Sodium Chloride 0.9%) 1,000 mls @ 999 mls/hr IV .Q1H1M STA Stop: 05/31/18 20:46 Last Admin: 05/31/18 20:00 Dose: 999 mls/hr eMAR Start Stop Document 05/31/18 20:00 AD (Rec: 05/31/18 20:01 AD [id number]) Intravenous Solution Start Date 05/31/18 Start Time 20:00 - Scribe Statement The provider has reviewed the documentation as recorded by the Scribe Nubia King All medical record entries made by the Scribe were at my direction and personally dictated by me. I have reviewed the chart and agree that the record accurately reflects my personal performance of the history, physical exam, medical decision making, and the department course for this patient. I have also personally directed, reviewed, and agree with the discharge instructions and disposition. Disposition/Present on Arrival - Present on Arrival Any Indicators Present on Arrival: No History of DVT/PE: No History of Uncontrolled Diabetes: No Urinary Catheter: No History of Decub. Ulcer: No History Surgical Site Infection Following: None - Disposition Have Diagnosis and Disposition been Completed?: Yes Diagnosis: Early stage of Disposition: HOME/ ROUTINE Disposition Time: 21:00 Condition: GOOD Discharge Instructions (ExitCare): - The First Month Additional Instructions: KADEEM ROLLINS, thank you for letting us take care of you today. The emergency medical care you received today was directed at your acute symptoms. If you were prescribed any medication, please fill it and take as directed. It may take several days for your symptoms to resolve. Return to the Emergency Department if your symptoms worsen, do not improve, or if you have any other problems. Please contact your doctor or call one of the physicians/clinics you have been referred to that are listed on the Patient Visit Information form that is included in your discharge packet. Bring any paperwork you were given at discharge with you along with any medications you are taking to your follow up visit. Our treatment cannot replace ongoing medical care by a primary care provider outside of the emergency department. Thank you for allowing the [email or web address] team to be part of your care today. Follow up with your [employer] doctor this week for re-evaluation and further management. Prescriptions: 21/Iron Fu/Folic Acid [ Complete Caplet] 1 each PO DAILY #30 tablet Referrals: [facility] Lubin, [Non-Staff] - Follow up with primary Forms: [employer] (Greenlandic)
--- NOTE | 2018-06-01 12:23 | US ---
Date of service: 05/31/2018 PROCEDURE: HISTORY: lower abdominal pain COMPARISON: TECHNIQUE: FINDINGS: The uterus measures 8.9 x 5.5 x 6.4 centimeters. There is an intrauterine gestational sac as well as a yolk sac. No pole is observed. The ovaries are unremarkable. IMPRESSION: Intrauterine gestational sac lead evidence of pole. Findings may represent an early intrauterine . Ectopic is not excluded. Recommend short-term interval follow-up and correlation with beta HCG levels.
== END 2018-05-31 21:30 | disposition home or self-care (01) ==
LOC: ED 18:38
DX: O26.891 Other specified pregnancy related conditions, first trimester (principal); Z3A.01 Less than 8 weeks gestation of pregnancy
CPT/HCPCS: 76817; 80053; 81003; 83690; 83735; 84702; 85025; 87086; 99285; J7030

== ENCOUNTER 2018-07-19 17:11 | Emergency (ER) | payer MEDICAID, OTHER ==
[2018-07-19 17:25] VITALS: BMI 22.6
--- NOTE | 2018-07-19 18:00 | ED PDOC ---
Arrival/HPI - General Chief Complaint: Abdominal Pain Time Seen by Provider: 07/19/18 17:36 Historian: Patient - History of Present Illness Narrative History of Present Illness (Text): 07/19/18 17:56 23-year-old female who is 10 weeks presents today with presenting today with lower abdominal pain that started yesterday. Patient describes the pain as a sharp pain located in the lower abdomen patient denies fevers or chills. No chest pain or shortness of breath. She denies dysuria or urinary frequency but states that she is noticed that the urine is cloudy. Patient denies any back pain. No headaches dizziness or weakness. No URI symptoms. No other complaints Past Medical History - Provider Review Nursing Documentation Reviewed: Yes - Travel History Have you recently traveled outside [place] w/in the past 3 mons?: No - Infectious Disease Hx of Infectious Diseases: None - Tetanus Immunization Tetanus Immunization: Up to Date - Cardiac Hx Cardiac Disorders: No - Pulmonary Hx Respiratory Disorders: No - Neurological Hx Neurological Disorder: No - HEENT Hx HEENT Disorder: No - Renal Hx Renal Disorder: No - Endocrine/Metabolic Hx Endocrine Disorders: No - Hematological/Oncological Hx Blood Disorders: No - Integumentary Hx Dermatological Disorder: No - Musculoskeletal/Rheumatological Hx Musculoskeletal Disorders: No - Gastrointestinal Hx Gastrointestinal Disorders: No - Genitourinary/Gynecological Hx Genitourinary Disorders: Yes Hx Urinary Tract Infection: Yes - Psychiatric Hx Psychophysiologic Disorder: No Hx Substance Use: No - Anesthesia Hx Anesthesia: No Hx Anesthesia Reactions: No Family/Social History - Physician Review Nursing Documentation Reviewed: Yes Family/Social History: Unknown Family HX Smoking Status: Never Smoked Hx Alcohol Use: No Hx Substance Use: No Allergies/Home Meds Allergies/Adverse Reactions: Allergies No Known Allergies Allergy (Verified 05/31/18 19:21) Review of Systems - Review of Systems Constitutional: absent: Fatigue, Fevers ENT: absent: Sore Throat, Sinus Congestion Respiratory: absent: SOB, Cough Cardiovascular: absent: Chest Pain, Palpitations Gastrointestinal: Abdominal Pain. absent: Constipation, Diarrhea, Nausea, Vomiting Genitourinary Female: Vaginal Discharge. absent: Dysuria, Frequency, Hematuria, Vaginal Bleeding Musculoskeletal: absent: Arthralgias, Back Pain, Neck Pain Skin: absent: Rash, Pruritis Neurological: absent: Headache, Dizziness Psychiatric: absent: Anxiety, Depression Physical Exam Vital Signs Reviewed: Yes Vital Signs Temp Pulse Resp BP Pulse Ox 07/19/18 17:11 99.3 F 89 16 99/67 L 100 Temperature: Afebrile Blood Pressure: Normal Pulse: Regular Respiratory Rate: Normal Appearance: Positive for: Well-Appearing, Non-Toxic, Comfortable Pain Distress: None Mental Status: Positive for: Alert and Oriented X 3 - Systems Exam Head: Present: Atraumatic Mouth: Present: Moist Mucous Membranes Neck: Present: Normal Range of Motion Respiratory/Chest: Present: Clear to Auscultation, Good Air Exchange. No: Respiratory Distress, Accessory Muscle Use Cardiovascular: Present: Regular Rate and Rhythm, Normal S1, S2. No: Murmurs Abdomen: Present: Tenderness (minimal suprapubic tenderness). No: Distention, Peritoneal Signs, Rebound, Guarding Genitourinary/Pelvic Exam: Present: Normal External Genitalia, Vaginal Discharge (minimal white discharge.), Cervical os Closed, Other (chaparoned by ER MEGHANA Haynes). No: Vaginal Bleeding, Vaginal Lesions, Adenexal Tenderness, Adenexal Mass, Cervical Motion Tendernes Back: Present: Normal Inspection. No: CVA Tenderness, Midline Tenderness, Paraspinal Tenderness Upper Extremity: Present: Normal ROM Lower Extremity: Present: Normal ROM Neurological: Present: GCS=15, Speech Normal Skin: Present: Warm, Dry, Normal Color. No: Rashes Psychiatric: Present: Alert, Oriented x 3 Medical Decision Making ED Course and Treatment: 07/19/18 18:10 Patient is nontoxic well appearing in no distress. Vital signs are stable. CBC: wnl CMP: wnl Beta hC pt is O+ reviewed from 06/21/16 Urinalysis: wnl Ultrasound: FINDINGS: GESTATION: There is a single live intrauterine gestation. cardiac activity is identified as 151 bpm. The biparietal diameter is 2.2 cm corresponding to 13 weeks and 4 days. Head circumference is 8.2 cm corresponding to 13 weeks and 3 days. Abdominal circumference is 6.49 cm corresponding to 13 weeks and 2 days. Femur length is 0.8 cm corresponding to 12 weeks and 3 days. Head circumference to abdominal tocometer ratio was 1.2. There appears to be normal amount of amniotic fluid. UTERUS: Unremarkable. No myometrial mass. CERVIX: Closed. Unremarkable. OVARIES: Unremarkable. No mass. FREE FLUID: No free fluid. IMPRESSION: Single live intrauterine gestation of approximately 13 weeks and 1 day. Close clinical correlation follow-up study recommended. patient reassessment: Patient is nontoxic well-appearing no distress. stable vital signs. No distress abdomen is soft nontender nondistended Discussed all the results the patient. advised f/u with the stereotyper within the next 2 days. advised immediate return if symptoms worsen,persist or if new symptoms develop. advised continuing to take vitamins daily. Patient verbalizes understanding of discharge instructions and need for immediate followup. all aspects of this case were discussed the attending of record. Impression: threatened Tylenol every 4 hours as needed for pain Increase fluids Followup with the eyeglass cutter within the next 2 days Return immediately if symptoms worsen persist or if new symptoms develop: High fevers, heavy bleeding, severe abdominal pain, vomiting, diarrhea, dizziness or weakness or any other concerning symptoms develop. Take vitamins daily. Reassessment Condition: Re-examined - RAD Interpretation Radiology Orders: 07/19/18 17:49 TRANSVAGINAL [US] Stat Disposition/Present on Arrival - Present on Arrival Any Indicators Present on Arrival: No History of DVT/PE: No History of Uncontrolled Diabetes: No Urinary Catheter: No History of Decub. Ulcer: No History Surgical Site Infection Following: None - Disposition Have Diagnosis and Disposition been Completed?: Yes Diagnosis: Threatened Disposition: HOME/ ROUTINE Disposition Time: 20:00 Patient Plan: Discharge Patient Problems: Current Active Problems Problem Status Onset Threatened Acute Condition: GOOD Discharge Instructions (ExitCare): Threatened Miscarriage (DC) Additional Instructions: Tylenol every 4 hours as needed for pain Increase fluids Followup with the eyeglass cutter within the next 2 days Return immediately if symptoms worsen persist or if new symptoms develop: High fevers, heavy bleeding, severe abdominal pain, vomiting, diarrhea, dizziness or weakness or any other concerning symptoms develop. Take vitamins daily. Referrals: Jarret Vazquez [Medical Doctor] - Follow up with primary [facility] [Outside] - [facility] [Outside] - Follow up with primary Forms: [employer] (Romansh), WORK NOTE
[2018-07-19 18:50] LABS: BASO # 0.03 K/mm3 (0.0-2.0); BASO % 0.3 % (0.0-3.0); EOS # 0.1 (0.0-0.7); EOS % 0.6 % (1.5-5.0); GRAN # 6.98 (1.4-6.5); GRAN % 66.3 % (50.0-68.0); HEMOGLOBIN 12.1 g/dL (12.0-16.0); LYMPH # 2.9 (1.2-3.4); LYMPH % 27.3 % (22.0-35.0); MEAN CELL VOLUME 88.5 fl (80.0-105.0); MEAN CORPUSCULAR HEMOGLOBIN 28.9 pg (25.0-35.0); MEAN CORPUSCULAR HGB CONC 32.7 g/dl (31.0-37.0); MEAN PLATELET VOLUME 10.9 fl (7.0-11.0); MONO # 0.6 (0.1-0.6); MONO % 5.5 % (1.0-6.0); RBC 4.18 10^6/uL (3.5-6.1); RED CELL DISTRIBUTION WIDTH 13.6 % (11.5-14.5); WHITE BLOOD COUNT 10.5 10^3/uL (4.5-11.0)
[2018-07-19 18:50] LABS: PH,URINE 8.5 (4.7-8.0); URINE BILIRUBIN NEGATIVE (NEGATIVE); URINE BLOOD NEGATIVE (NEGATIVE); URINE GLUCOSE (UA) NEGATIVE (NEGATIVE); URINE LEUKOCYTE ESTERASE NEGATIVE Leu/uL (NEGATIVE); URINE PROTEIN NEGATIVE mg/dL (<30 mg/dL); URINE UROBILINOGEN 0.2 E.U./dL (<1 E.U./dL)
[2018-07-19 18:51] LABS: ALB/GLOB RATIO 1.1 (1.1-1.8); ALBUMIN 4.2 g/dL (3.0-4.8); BLOOD UREA NITROGEN 6 mg/dL (7-21); GFR NON-AFRICAN AMERICAN > 60; LIPASE 77 U/L (23-300)
[2018-07-19 18:53] LABS: URINE COLOR YELLOW (YELLOW)
[2018-07-19 19:19] LABS: ALT/SGPT 10 U/L (7-56); AST/SGOT 35 U/L (14-36)
[2018-07-19 20:51] LABS: URINE APPEARANCE CLOUDY (CLEAR)
[2018-07-19 21:08] VITALS: BP 115/71; PULSE 83; TEMP 98.2; O2SAT 99
[2018-07-20 00:24] VITALS: RESP 18
--- NOTE | 2018-07-20 10:36 | US ---
Date of service: 07/19/2018 PROCEDURE: First trimester ultrasound HISTORY: abd pain/ COMPARISON: 05/31/2018 pelvic ultrasound TECHNIQUE: TECHNIQUE: Real-time 2D imaging, duplex and color Doppler. FINDINGS: LMP: 05/28/2018. Prior examinations from the current : 05/31/2018 Variable presentation. Posterior placenta. No evidence of abruption or previa Gestational age derived from LMP 7 weeks 3 days. FREDDIE 03/04/2019. Gestational age derived from the following biometric parameters 13 weeks 1 day. FREDDIE 01/23/2019 Biparietal diameter 2.18 cm Head circumference 8.09 cm Abdominal circumference 6.64 cm Femur length 0.80 cm Estimated weight 66.1 g Calculated cardiac rate 151 beats per min. Closed cervix measuring 3.11 cm IMPRESSION: 13 weeks 1 day live intrauterine gestation. Gestational discordance noted. However the prior ultrasound from 05/31/2018 indicated and early based on gestational sac and yolk sac. Concordant findings (preliminary report) provided by [facility].
== END 2018-07-19 21:00 | disposition home or self-care (01) ==
LOC: ED 17:11
DX: O20.0 Threatened abortion (principal); Z3A.13 13 weeks gestation of pregnancy